=== PATIENT | male | born 1935 | race Caucasian/White ===

== ENCOUNTER → 2018-08-28 | Outpatient (REF) | payer MEDICARE, OTHER | END | disposition home or self-care (01) | LOC: ULTRASND 12:37 | PROVIDERS: ATTEND Nurse Practitioner Family | DX: M79.604 Pain in right leg (principal) ==

== ENCOUNTER 2019-07-27 | Emergency (ER) | payer MEDICARE, OTHER ==
[2019-07-27] MEDS ORDERED: HYDROCHLOROT12.5 M1 PO (10:37)
[2019-07-27] MEDS ORDERED: METOPROL TAR25 MG PO (10:38)
[2019-07-27] MEDS ORDERED: NIFEDIPINE ER90 MG PO (10:38)
[2019-07-27] MEDS ORDERED: CLONIDINE0.1 MG PO (10:39)
[2019-07-27] MEDS ORDERED: ELIQUIS5 MG PO (10:39)
[2019-07-27] MEDS ORDERED: ACCUPRIL40 MG PO (10:39)
[2019-07-27] MEDS ORDERED: OMEPRAZOLE DR20 MG PO (10:40)
[2019-07-27] MEDS ORDERED: ATORVASTATIN CA80 MG PO (10:40)
[2019-07-27 11:48] LABS: IMMATURE GRANULOCYTES 0.6 % (0.0-5.0); MEAN CELL VOLUME 79.1 fL CALC (80.0-100.0); NEUT# 3.25 thou/uL (1.82-7.42); RED BLOOD COUNT 2.35 mill/uL (4.70-6.10); RED CELL DISTRI WIDTH 19.1 % (11.5-15.5)
[2019-07-27 11:51] LABS: HEMATOCRIT 18.6 % (39.0-50.0); HEMOGLOBIN 5.4 g/dl (14.0-18.0)
[2019-07-27 12:01] LABS: ALBUMIN 3.9 g/dL (3.2-5.0); ALKALINE PHOSPHATASE 151 u/l (38-126); ANION GAP 17 (6-22 (CALC)); BILIRUBIN, TOTAL 0.5 mg/dL (0.0-1.4); BUN 18 mg/dL (8-23); BUN/CREATININE RATIO 18 (12-20 (CALC)); CARBON DIOXIDE 20 mmol/l (22-30); CHLORIDE 102 mmol/l (95-108); GFR > 60 ML/MIN (>=60 (CALC)); GFR FOR AFR.AMER. > 60 ML/MIN (>=60 (CALC)); POTASSIUM 4.3 mmol/l (3.5-5.1); SGOT/AST 35 u/l (19-48); SODIUM 135 mmol/l (137-146); TOTAL PROTEIN 7.2 g/dL (6.3-8.2)
[2019-07-27 12:12] LABS: MYOGLOBIN 72 ng/mL (0 - 121)
[2019-07-27 12:21] LABS: PROTHROMBIN TIME 10.6 SECONDS (9.0-12.5)
[2019-07-27 12:36] VITALS: BP 107/59
[2019-07-27 12:48] VITALS: BP 105/59
== END 2019-07-27 14:00 | disposition short-term general hospital (02) ==
PROVIDERS: Emergency Medicine
PROC: 30233N1 Transfusion of Nonautologous Red Blood Cells into Peripheral Vein, Percutaneous Approach (ICD-10-PCS; principal; 2019-07-27)
DX: D64.9 Anemia, unspecified (principal); I10 Essential (primary) hypertension; I48.91 Unspecified atrial fibrillation
CPT/HCPCS: P9016; S0164

== ENCOUNTER 2019-07-31 | Emergency (ER) | payer MEDICARE, OTHER ==
[~2019-07-31] MED LIST: ACCUPRIL40 MG PO; ATORVASTATIN CA80 MG PO; CLONIDINE0.1 MG PO; ELIQUIS5 MG PO; HYDROCHLOROT12.5 M1 PO; METOPROL TAR25 MG PO; NIFEDIPINE ER90 MG PO; OMEPRAZOLE DR20 MG PO
[2019-07-31 17:57] LABS: IMMATURE GRANULOCYTES 0.9 % (0.0-5.0); MEAN CORPUSCULAR HGB 25.8 pG CALC (26.0-32.0); MEAN CORPUSCULAR HGB CONC 30.7 g/L CALC (32.0-36.0); NEUT# 5.29 thou/uL (1.82-7.42); RED BLOOD COUNT 3.3 mill/uL (4.70-6.10); RED CELL DISTRI WIDTH 18.6 % (11.5-15.5)
[2019-07-31 18:08] LABS: ALBUMIN 3.6 g/dL (3.2-5.0); ALKALINE PHOSPHATASE 117 u/l (38-126); ANION GAP 16 (6-22 (CALC)); BILIRUBIN, TOTAL 0.5 mg/dL (0.0-1.4); BUN 19 mg/dL (8-23); BUN/CREATININE RATIO 15 (12-20 (CALC)); CARBON DIOXIDE 18 mmol/l (22-30); CHLORIDE 107 mmol/l (95-108); CREATININE 1.3 mg/dL (0.7-1.3); GFR 53 ML/MIN (>=60 (CALC)); GFR FOR AFR.AMER. > 60 ML/MIN (>=60 (CALC)); POTASSIUM 4.7 mmol/l (3.5-5.1); SGOT/AST 25 u/l (19-48); SODIUM 136 mmol/l (137-146); TOTAL PROTEIN 6.4 g/dL (6.3-8.2)
[2019-07-31 18:26] LABS: HEMATOCRIT 27.7 % (39.0-50.0); HEMOGLOBIN 8.5 g/dl (14.0-18.0); MEAN CELL VOLUME 83.9 fL CALC (80.0-100.0)
[2019-07-31] MEDS ORDERED: PLAVIX75 MG PO (19:24)
== END 2019-07-31 19:40 | disposition home or self-care (01) ==
DX: R25.2 Cramp and spasm (principal); D64.9 Anemia, unspecified; I10 Essential (primary) hypertension; I48.91 Unspecified atrial fibrillation; F17.210 Nicotine dependence, cigarettes, uncomplicated; Z79.01 Long term (current) use of anticoagulants; Z79.02 Long term (current) use of antithrombotics/antiplatelets

== ENCOUNTER 2019-08-01 14:18 | Inpatient (IN) | payer MEDICARE, OTHER ==
[~2019-08-01] VITALS: Ht 182.9 cm; Wt 90.4 kg
[2019-08-01] VITALS (8 sets, daily range): BP systolic 137–166; BP diastolic 68–85
[~2019-08-01 14:18] MED LIST changes: +PLAVIX75 MG PO
--- NOTE | 2019-08-01 14:40 | NUR ---
PATIENT TO ROOM VIA WHEELCHAIR, ASSISTED ONTO STRETCHER.
--- NOTE | 2019-08-01 15:00 | NUR ---
PATIENT REPORTS BEING RECENTLY IN HOSPITAL FOR GI BLEED. TACHYPNEA NOTED, REPORTS SOB STARTING X1 HOUR PRIOR TO ARRIVAL.
[2019-08-01 15:25] LABS: HEMATOCRIT 29.1 % (39.0-50.0); HEMOGLOBIN 8.9 g/dl (14.0-18.0); IMMATURE GRANULOCYTES 0.3 % (0.0-5.0); MEAN CELL VOLUME 83.9 fL CALC (80.0-100.0); MEAN CORPUSCULAR HGB 25.6 pG CALC (26.0-32.0); MEAN CORPUSCULAR HGB CONC 30.6 g/L CALC (32.0-36.0); NEUT# 4.8 thou/uL (1.82-7.42); RED BLOOD COUNT 3.47 mill/uL (4.70-6.10); RED CELL DISTRI WIDTH 18.6 % (11.5-15.5)
--- NOTE | 2019-08-01 16:10 | NUR ---
PATIENT CONTINUES IN RADIOLOGY DEPARTMENT.
[2019-08-01 16:14] LABS: ALBUMIN 3.8 g/dL (3.2-5.0); ALKALINE PHOSPHATASE 129 u/l (38-126); ANION GAP 16 (6-22 (CALC)); BILIRUBIN, TOTAL 0.6 mg/dL (0.0-1.4); BUN 24 mg/dL (8-23); BUN/CREATININE RATIO 21 (12-20 (CALC)); CARBON DIOXIDE 19 mmol/l (22-30); CHLORIDE 106 mmol/l (95-108); CREATININE 1.1 mg/dL (0.7-1.3); GFR > 60 ML/MIN (>=60 (CALC)); GFR FOR AFR.AMER. > 60 ML/MIN (>=60 (CALC)); POTASSIUM 4.3 mmol/l (3.5-5.1); SGOT/AST 30 u/l (19-48); SODIUM 136 mmol/l (137-146); TOTAL PROTEIN 6.8 g/dL (6.3-8.2)
--- NOTE | 2019-08-01 17:00 | NUR ---
PATIENT HAS CRACKLES TO LEFT LOWER LOBE, ALL OTHER LUNG SOUNDS CLEAR. IV FLUIDS AND IV ANTIBIOTIC INFUSING WELL. UPDATED ON PLAN OF CARE. VERBAL UNDERSTANDING. WILL CONTINUE TO MONITOR.
--- NOTE | 2019-08-01 18:00 | NUR ---
PATIENT NOTED TO HAVE SEVERE DYSPNEA AFTER RETURN FROM CT. WHEEZING NOTED TO BILATERAL LUNGS. NEB TREATMENT IN PLACE.
--- NOTE | 2019-08-01 18:15 | NUR ---
PATIENT CONTINUES TO HAVE MILD WHEEZING BILATERALLY. RESPORTS FEELING BETTER AFTER BREATHING TREATMENT.
--- NOTE | 2019-08-01 18:31 | NUR ---
PATIENT NOW HAS PRODUCTIVE COUGH.
--- NOTE | 2019-08-01 18:40 | NUR ---
PATIENT UP TO USE URINAL, SEVERE RESPIRATORY DISTRESS NOTED. TERRY GARDNER AND INFORMED. RT PAGED. PATIENT PLACED ON BIPAP.
--- NOTE | 2019-08-01 18:54 | NUR ---
REPORT GIVEN TO IDA ENGLE. PATIENT ON BI-PAP REPORTS BREATHING BETTER. CAR RELINQUISHED.
--- NOTE | 2019-08-01 19:00 | NUR ---
TOOK OVER CARE OF PT. STEWART HOLGUIN STATED AGUILAR CATHETER ORDERED FOR FLOOR BUT ONLY WANTS PLACED IF PT UNABLE TO URINATE WITHOUT STANDING TO GET SOB.
--- NOTE | 2019-08-01 19:10 | NUR ---
SBAR TO ICU
--- NOTE | 2019-08-01 19:30 | NUR ---
PT ABLE TO URINATE WITHOUT ANY PROBLEMS
--- NOTE | 2019-08-01 19:42 | NUR ---
CALLED FLOOR TO GIVE REPORT, NO ANSWER
--- NOTE | 2019-08-01 19:50 | NUR ---
MARCIE RT CHANGED PT TO 3L NC OXYGEN FOR TRANSPORT.
--- NOTE | 2019-08-01 19:52 | NUR ---
Admission Note Report Given to: MARLON LÓPEZ Transported by: Wheelchair X Stretcher Transported with: X Nurse Transporter X Patent IV X O2 X Compound Coating Machine Offbearer Location: X ICU MS2 400 CC URINE OUT.
--- NOTE | 2019-08-01 20:01 | NUR ---
84 yr old white male admitted icu8 per stretcher from er. bipap cont. no resp distress. transferred self to bed. bed weight obtained. #18 rac saline lock. technical operator shows a fib pvcs hr 94. history obtained per pt & er record. oriented to room. fall precautions cont. retrieved from waiting room. all questions answered.
[2019-08-01 20:07] LABS: URINE BILIRUBIN - DIPSTICK NEGATIVE (NEGATIVE); URINE BLOOD DIPSTICK NEGATIVE (NEGATIVE); URINE CLARITY CLEAR; URINE COLOR YELLOW; URINE GLUCOSE - DIPSTICK NEGATIVE (NEGATIVE); URINE KETONE NEGATIVE (NEGATIVE); URINE LEUK ESTERASE NEGATIVE (Negative); URINE NITRITE - DIPSTICK NEGATIVE (Negative); URINE PH 5.5 (4.5-8.0); URINE PROTEIN - DIPSTICK NEGATIVE (NEG-TRACE); URINE SPECIFIC GRAVITY 1.015; URINE UROBILINOGEN - DIPSTICK 0.2 E.U./dL (0.2)
--- NOTE | 2019-08-01 22:00 | NUR ---
eyes closed. bipap cont. no resp diff. air sampling and monitoring shows a fib pvcs hr 74.
[2019-08-02] VITALS (19 sets, daily range): BP systolic 126–182; BP diastolic 64–98
--- NOTE | 2019-08-02 00:01 | NUR ---
eyes closed. no resp distress. engine monitor shows a fib pvcs hr 70.
--- NOTE | 2019-08-02 02:00 | NUR ---
resting quietly. resps even & unlabored. bipap cont.
--- NOTE | 2019-08-02 04:00 | NUR ---
up to side of bed. voided well. no c/o voiced.
--- NOTE | 2019-08-02 05:34 | NUR ---
lab here. blood drawn.
[2019-08-02 05:58] LABS: ANION GAP 12 (6-22 (CALC)); BUN 22 mg/dL (8-23); BUN/CREATININE RATIO 25 (12-20 (CALC)); CHLORIDE 105 mmol/l (95-108); CREATININE 0.9 mg/dL (0.7-1.3); GFR > 60 ML/MIN (>=60 (CALC)); GFR FOR AFR.AMER. > 60 ML/MIN (>=60 (CALC)); SODIUM 136 mmol/l (137-146)
[2019-08-02 06:04] LABS: CARBON DIOXIDE 23 mmol/l (22-30)
--- NOTE | 2019-08-02 07:52 | NUR ---
REPORT RECEIVED FROM NIGHT NURSE. PT ASSESSMENT COMPLETE. PT ALERT AND ORIENTED X4. NO RESPIRATORY DISTRESS NOTED. PT ON 1L NASAL CANULA. PT IN AFIB. PT FREELY VOIDING VIA URINAL. EDUCATED PATIENT ON FALL RISK STATUS AND CALL LIGHT. PLEASE SEE FLOW SHEET FOR FURTHER DETAILS. WILL CONTINUE TO MONITOR.
--- NOTE | 2019-08-02 10:09 | NUR ---
PT RESTING WITH EYES CLOSED. NO DISTRESS NOTED. WILL CONTINUE TO MONITOR.
--- NOTE | 2019-08-02 12:12 | NUR ---
PT DENIES PAIN. PHILL HARMON NOTIFIED OF HIGH BLOOD PRESSUE. PATIENT HOME BLOOD PRESSURE MEDICATIONS RESTARTED. NO RESPIRATORY DISTRESS NOTED. PT EATING LUNCH. WILL CONTINUE TO MONITOR.
--- NOTE | 2019-08-02 14:00 | NUR ---
PT UP IN BED. TV ON. NO DISTRESS NOTED. WILL CONTINUE TO MONITOR.
--- NOTE | 2019-08-02 16:30 | NUR ---
PT IV INFILTRARED. L AC 18G IV REMOVED. NEW IV PLACED. WILL CONTINUE TO MONITOR.
--- NOTE | 2019-08-02 18:50 | NUR ---
REPORT GIVENE TO NIGHT NURSE. PT RECEIVED SCHEDULED BLOOD PRESSURE MEDICATION FOR HIGH BLOOD PRESSURE. PT VOIDING VIA URINAL. AFIB. AFERBILE. 1L NASAL CANULA, NO DISTRESS NOTED. PT DENIED ANY PAIN. NO BM. PLEASE SEE FLOW SHEET FOR FURTHER DETAILS.
--- NOTE | 2019-08-02 19:15 | NUR ---
awake. denies resp diff. o2 cont per nc. laboratory monitor shows a fib pvcs hr 74. #20 rt wrist saline lock. po fluids limited. voids well per urinal. fall precautions cont.
--- NOTE | 2019-08-02 22:00 | NUR ---
watching football. no c/o voiced.
--- NOTE | 2019-08-02 22:13 | NUR ---
WILL CALL RT IN CASE HE NEEDS THE BIPAP FOR TONIGHT.
[2019-08-03] VITALS (8 sets, daily range): BP systolic 116–180; BP diastolic 57–83
--- NOTE | 2019-08-03 00:01 | NUR ---
awake. voided per urinal. no c/o voiced.
--- NOTE | 2019-08-03 02:00 | NUR ---
resting quietly. resps even & unlabored. no apparent distress.
--- NOTE | 2019-08-03 04:00 | NUR ---
eyes closed. banquet chef shows a fib pvcs hr 74.
--- NOTE | 2019-08-03 05:00 | NUR ---
lab hre. blood drawn.
[2019-08-03 05:16] LABS: HEMATOCRIT 31.4 % (39.0-50.0); HEMOGLOBIN 9.5 g/dl (14.0-18.0); IMMATURE GRANULOCYTES 0.3 % (0.0-5.0); MEAN CELL VOLUME 83.3 fL CALC (80.0-100.0); MEAN CORPUSCULAR HGB 25.2 pG CALC (26.0-32.0); MEAN CORPUSCULAR HGB CONC 30.3 g/L CALC (32.0-36.0); NEUT# 3.64 thou/uL (1.82-7.42); RED BLOOD COUNT 3.77 mill/uL (4.70-6.10); RED CELL DISTRI WIDTH 18.7 % (11.5-15.5)
[2019-08-03 05:40] LABS: ALBUMIN 3.4 g/dL (3.2-5.0); ALKALINE PHOSPHATASE 122 u/l (38-126); ANION GAP 12 (6-22 (CALC)); BILIRUBIN, TOTAL 0.4 mg/dL (0.0-1.4); BUN 19 mg/dL (8-23); BUN/CREATININE RATIO 23 (12-20 (CALC)); CARBON DIOXIDE 23 mmol/l (22-30); CHLORIDE 105 mmol/l (95-108); CREATININE 0.8 mg/dL (0.7-1.3); GFR > 60 ML/MIN (>=60 (CALC)); GFR FOR AFR.AMER. > 60 ML/MIN (>=60 (CALC)); POTASSIUM 3.5 mmol/l (3.5-5.1); SGOT/AST 33 u/l (19-48); SODIUM 137 mmol/l (137-146); TOTAL PROTEIN 6.2 g/dL (6.3-8.2)
--- NOTE | 2019-08-03 06:45 | NUR ---
RECIEVED REPORT FROM MARLON LÓPEZ. ASSUMED PT CARE.
--- NOTE | 2019-08-03 08:00 | NUR ---
PT RESTING IN BED, A&OX4, ABLE TO MAKE NEEDS KNOWN. PT DENIES CP, SOB OR DISTRESS AT THIS TIME. RESPIRATIONS EVEN/UNLABORED, SA02@98% ON 02@2PLM VIA NC. LS CLEAR THROUGHOUT. ABDOMEN SOFT, NON-TENDER, BSX4 ACTIVE, LBM 08-02-2019. CALL LIGHT IN REACH. WILL MONITOR.
--- NOTE | 2019-08-03 09:00 | NUR ---
DR. FOLEY AT BEDSIDE FOR ASSESSMENT AND TO DISCUSS PLAN OF CARE. NEW ORDERS RECIEVED.
--- NOTE | 2019-08-03 09:15 | NUR ---
PT ASSISTED WITH BATH, FULL LINEN CHANGE AND MOUTH CARE. PT TOLERATED WELL. STEADY GAIT. ARRIVED AT BEDSIDE. CALL LIGHT IN REACH. WILL MONITOR.
--- NOTE | 2019-08-03 10:48 | NUR ---
RITESH WOODALL AT [facility] FOR ASSESSMENT . REMAINS AT BEDSIDE.
--- NOTE | 2019-08-03 12:00 | NUR ---
PT SITTING UP IN BED, TALKING WITH .
--- NOTE | 2019-08-03 14:00 | NUR ---
RT AT BEDSIDE FOR TX.
--- NOTE | 2019-08-03 14:30 | NUR ---
PT AT BEDSIDE, ASSISTED PT WITH AMBULATING IN THE HALLWAY. PT WITH STEADY GAIT.
--- NOTE | 2019-08-03 16:00 | NUR ---
PT RESTING IN BED, WATCHING TV. RESPIRATIONS EVEN/UNLABORED. SA02@100%RA.
--- NOTE | 2019-08-03 17:20 | NUR ---
DR. FOLEY AT BEDSIDE FOR ASSESSMENT AND TO DISCUSS PLAN OF CARE, NEW ORDERS RECIEVED.
[2019-08-03] MEDS ORDERED: LEVAQUIN750 MG PO (17:22)
[2019-08-03] MEDS ORDERED: PROAIR HFA IN (17:23)
--- NOTE | 2019-08-03 18:11 | NUR ---
Discharge instructions given. Patient verbalizes understanding of same. Discharged in stable condition via Wheelchair to Home with family. All belongings sent with pt. PAPER PRESCRIPTION SENT HOME WITH PT.
--- NOTE | 2019-08-12 08:45 | NUR ---
Post discharge pneumonia follow up call completed 08/11/19. Pt states his breathing issues appear to have resolved and is having no further respiratory symptoms. Pt has completed the course of antibiotics prescribed on discharge and is currently using the Albuterol. Pt. states he is now experiencing significant issue with bilateral leg pain/edema. Pt. saw Dr. Murphy last week, Dr. Mendez today, and has appt with a "vein specialist" in [place] on the . No questions or needs verbalized at this time.
== END 2019-08-03 18:12 | disposition home or self-care (01) | DRG 195 ==
LOC: ED 14:18 → ED-I 18:35 → ED 19:11 → ICU 19:12
PROVIDERS: Emergency Medicine; Nurse Practitioner Family; ADMIT Internal Medicine; ATTEND Internal Medicine
PROC: 5A09357 Assistance with Respiratory Ventilation, Less than 24 Consecutive Hours, Continuous Positive Airway Pressure (ICD-10-PCS; principal; 2019-08-01)
DX: J18.9 Pneumonia, unspecified organism (principal); E87.71 Transfusion associated circulatory overload; D50.0 Iron deficiency anemia secondary to blood loss (chronic); I11.0 Hypertensive heart disease with heart failure; I50.9 Heart failure, unspecified; I48.0 Paroxysmal atrial fibrillation; I73.9 Peripheral vascular disease, unspecified; R25.2 Cramp and spasm; F17.200 Nicotine dependence, unspecified, uncomplicated; Z87.11 Personal history of peptic ulcer disease; Z95.820 Peripheral vascular angioplasty status with implants and grafts; Z79.01 Long term (current) use of anticoagulants; M79.18 Myalgia, other site; D64.9 Anemia, unspecified; I10 Essential (primary) hypertension; I48.91 Unspecified atrial fibrillation; F17.210 Nicotine dependence, cigarettes, uncomplicated; Z79.02 Long term (current) use of antithrombotics/antiplatelets
CPT/HCPCS: Q9967